=== PATIENT | female | born 1980 | race Caucasian/White ===

== ENCOUNTER 2017-06-08 08:42 | Day surgery (SDC) | payer OTHER ==
[2017-06-01 13:53] LABS: INTERNATIONAL RATION (INR) 0.86; PARTIAL THROMBOPLASTIN TIME 24.4 SEC (23.5-35.8); PROTHROMBIN TIME 12.4 SEC (11.4-15.4)
[2017-06-01 14:11] LABS: ALANINE AMINOTRANSFERASE 39 U/L (9-52); ALBUMIN 4.7 g/dL (3.5-5.0); ALKALINE PHOSPHATASE 64 U/L (38-126); ANION GAP 12 (5-19); ASPARTATE AMINO TRANSFERASE 31 U/L (14-36); BILIRUBIN,DIRECT 0.3 mg/dL (0.0-0.4); BILIRUBIN,TOTAL 0.3 mg/dL (0.2-1.3); BLOOD UREA NITROGEN 12 mg/dL (7-20); CALCIUM 10.4 mg/dL (8.4-10.2); CARBON DIOXIDE 24 mmol/L (22-30); CHLORIDE 108 mmol/L (98-107); GLUCOSE 83 mg/dL (75-110); POTASSIUM 4.5 mmol/L (3.6-5.0); SODIUM 143.9 mmol/L (137-145); TOTAL PROTEIN 7.4 g/dL (6.3-8.2)
--- NOTE | 2017-06-01 21:46 | EKG REPORT ---
SEVERITY:- NORMAL ECG - SINUS RHYTHM : Confirmed by: Devante Cardenas 01-Jun-2017 21:45:46
[2017-06-02 10:08] LABS: HEMATOCRIT 38.9 % (36.0-47.0); HEMOGLOBIN 13.3 g/dL (12.0-15.5); MEAN CORPUSCULAR HEMOGLOBIN 33.5 pg (27.0-33.4); MEAN CORPUSCULAR HGB CONC 34.2 g/dL (32.0-36.0); MEAN CORPUSCULAR VOLUME 98 fl (80-97); PLATELET COUNT 261 10^3/uL (150-450); RED BLOOD COUNT 3.97 10^6/uL (3.72-5.28); RED CELL DISTRIBUTION WIDTH 12.9 % (11.5-14.0); WHITE BLOOD COUNT 5.6 10^3/uL (4.0-10.5)
[~2017-06-08 08:42] MED LIST: BUPIVACAINE HCL 0.25 % INJ/PF (2.5 MG/1 ML) 30 ML VIAL ONE; CEFAZOLIN 2 GM/D5W RTU 2 GM/50 ML RTUPB IV PRN; LACTATED RINGERS 1000 ML IV PRN; LIDOCAINE 0.5% INJ-PF (5 MG/ML) 50 ML SDV SUBCUT PRN; METHYLENE BLUE 50 MG/10 ML AMPULE ONE; RINGERS SOLUTION,LACTATED 1,000 ML IV PRN
[2017-06-08] MEDS ORDERED: PROPOFOL INJ 200 MG/20 ML VIAL IV ONE (11:17)
[2017-06-08] MEDS ORDERED: EPHEDRINE SULFATE INJ 50 MG/1 ML AMPULE ONE (11:17)
[2017-06-08] MEDS ORDERED: ACETAMINOPHEN 100 ML IV ONE (11:17)
[2017-06-08] MEDS ORDERED: HYDROMORPHONE HCL INJ/PF 2 MG/ML AMPULE ONE (11:17)
[2017-06-08] MEDS ORDERED: FENTANYL CITRATE INJ/PF 100 MCG/2 ML AMPUL ONE (11:17)
[2017-06-08] MEDS ORDERED: MIDAZOLAM 2 MG/2 ML INJ ONE (11:17)
[2017-06-08] MEDS ORDERED: NEOSTIGMINE METHYLSULFATE 10 MG/10 ML VIAL ONE (13:43)
[2017-06-08] MEDS ORDERED: DEXAMETHASONE SOD PHOSPHATE INJ 4 MG/1 ML VIAL ONE (13:43)
[2017-06-08] MEDS ORDERED: KETOROLAC TROMETHAMINE 60 MG/2 ML SDV ONE (13:43)
[2017-06-08] MEDS ORDERED: SUCCINYLCHOLINE CHLORIDE INJ 200 MG/10 ML VIAL ONE (13:43)
[2017-06-08] MEDS ORDERED: GLYCOPYRROLATE INJ 0.4 MG/2 ML VIAL ONE (13:43)
[2017-06-08] MEDS ORDERED: LIDOCAINE 2% INJ-PF (20 MG/ML) 2 ML AMPUL ONE (13:43)
[2017-06-08] MEDS ORDERED: VECURONIUM BROMIDE INJ 10 MG VIAL IV ONE (13:43)
[2017-06-08] MEDS ORDERED: OXYCODONE-ACETAMINOPHEN 5-325 MG TABLET PO PRN ×3 (13:50→14:21)
[2017-06-08] MEDS ORDERED: OXYCODONE HCL IR 5 MG TABLET PO PRN (13:51)
[2017-06-08] MEDS ORDERED: ONDANSETRON 4 MG TAB.RAPDIS PO PRN (13:52)
[2017-06-08] MEDS ORDERED: PROMETHAZINE HCL INJ 25 MG/1 ML VIAL IV PRN ×3 (13:52→14:21)
[2017-06-08] MEDS: FENTANYL CITRATE INJ/PF 100 MCG/2 ML AMPUL ONE ×2 (13:58→14:03)
[2017-06-08] MEDS ORDERED: NORMAL SALINE 1000 ML 1,000 ML IV ONE (14:00)
[2017-06-08] MEDS ORDERED: FENTANYL CITRATE INJ/PF 100 MCG/2 ML AMPUL IV PRN ×4 (14:16→14:21)
[2017-06-08] MEDS ORDERED: ONDANSETRON HCL INJ/PF 4 MG/2 ML SDV IV PRN (14:21)
[2017-06-08] MEDS ORDERED: MORPHINE SULFATE 10 MG/ML INJ IV PRN (14:21)
[2017-06-08] MEDS ORDERED: DIPHENHYDRAMINE HCL 50 MG/ML VIAL IV PRN (14:21)
[2017-06-08] MEDS ORDERED: MEPERIDINE HCL/PF INJ 25 MG/1 ML DISP.SYRIN IV PRN (14:21)
--- NOTE | 2017-06-08 14:29 | OPERATIVE REPORT E ---
Operative Report NAME: WILFRIDO BOSCH : 1980 AGE: 37Y DATE OF SURGERY: 06/08/2017 ROOM: PREOPERATIVE DIAGNOSES: 1. HISTORY OF BREAST CANCER, STATUS POST RADIATION AND CHEMOTHERAPY. 2. CHRONIC PELVIC PAIN. 3. RISK REDUCING BILATERAL SALPINGO-OOPHORECTOMY DUE TO A HISTORY OF BREAST CANCER. POSTOPERATIVE DIAGNOSES: 1. HISTORY OF BREAST CANCER, STATUS POST RADIATION AND CHEMOTHERAPY. 2. CHRONIC PELVIC PAIN. 3. RISK REDUCING BILATERAL SALPINGO-OOPHORECTOMY DUE TO A HISTORY OF BREAST CANCER. OPERATION: 1. Robotic-assisted laparoscopic hysterectomy. 2. Bilateral salpingo-oophorectomy. 3. Cystoscopy. SURGEON: Rosalinda Yanez ANESTHESIA: General. ESTIMATED BLOOD LOSS : 100 mL. INTRAVENOUS FLUIDS: 2 L of normal saline. URINE OUTPUT: 500 mL clear urine. COMPLICATIONS: None. INDICATIONS: Patient is a 36-year-old G0 with a history of breast cancer with ERPR positive receptors, status post radiation and chemotherapy in the past, being followed by General Surgery and Oncology, presented initially for chronic pelvic pain and desires to have permanent removal of her ovaries, tubes, and uterus due to her extensive history of current breast cancer. Patient understood and consented for procedure, and agreed to proceed to the operating room after getting appropriate consent. Patient was counseled on procedure including, but not limited to, bleeding, infection, injury to surrounding organ and tissue including bowel or bladder, and the need of exploratory laparotomy in case there is bleeding at the same time that cannot be controlled with the laparoscope, and the need of transfusion of red blood cells. FINDINGS: Normal ovaries bilaterally, normal fallopian tubes, and normal uterus size. PROCEDURE: Patient was taken into the operating room. General anesthesia was induced without difficulty. Patient was placed in the dorsal lithotomy position and was thoroughly prepped and draped in the usual sterile fashion. A Alexandre Hugger was placed to maintain control of core body temperature. Dickinson catheter was placed in the bladder. A single-tooth tenaculum was placed in the cervix and grasped the cervix, and the cervix was dilated with a cervical os dilator. Uterus was sounded to approximately 7 cm. Two tjrtng-lt-dnnah stitches around 3 and 9 o'clock were placed for anchoring stitches before placing the VCare and the VCare manipulator was attached to the uterus in a cervical ring and anchored to the stitches on the right and left. The weighted speculum and single-tooth tenaculum were removed. A horizontal supraumbilical incision was performed and the Veress needle was introduced into the abdominal cavity. After appropriate drop test, the abdomen was insufflated with carbon dioxide until pneumoperitoneum was established. The Veress needle was removed. Supraumbilical incision was slightly extended. A 12 mm trocar was inserted and placed in the abdominal cavity under direct visualization with the laparoscope without any difficulty. Trocar removed. The robot laparoscope was placed in the abdominal cavity. Please see the above findings. Three additional ports, one in the right lower, one in the left lower, and one in the right upper quadrant were inserted under direct visualization. Special attention was paid to the ureters bilaterally and the ureters were both well away from the surgical field at all times. At this point after visualizing the ureters and making sure that they were away from the surgical forrester, the right infundibulopelvic ligament was cauterized and transected. The right round ligament was cauterized and transected all the way down to the level of uterine's, and the right bladder flap was created. On the contralateral side, it was performed in a similar fashion. The infundibulopelvic ligament was cauterized and transected, and the left round ligament cauterized and transected all the way down to the level of the uterine's. The left side of the bladder flap was created and met the right side of the bladder flap. At this point, the bladder was pushed all the way down after appropriate dissection making sure it was far away from the colpotomy site. The left and the right uterine blood vessels were cauterized also appropriately and transected. At this point, the anterior colpotomy was performed circumscribing the cervix. After performing the anterior and posterior colpotomy and connecting them in a circumscribed fashion, the uterus was removed with the cervix, with both the fallopian tubes, and the right and left ovary. At this time, irrigation was performed. The vaginal cuff was completely intact and no oozing was visualized from the pelvic sidewalls or the vaginal cuff. The bladder was far away from the vaginal cuff. Visualization of both the ureters was also performed, they were both peristalsing and acting normally. FloSeal was applied to the vaginal cuff after closing the vaginal cuff appropriately with a V-Loc suture in a running fashion. During the closure of the vaginal cuff, I asked Anesthesia to give methylene blue for the cystoscopy portion preparation. Once the vaginal cuff closure was performed and FloSeal applied along the vaginal cuff and making sure the pelvic sidewalls and everything else looked hemostatic, attention was turned to below for the cystoscopy portion. The cystoscope revealed completely normal ureters with blue hue coming through both the right and left ureters with excellent flow of efflux bilaterally. Bladder integrity was visualized. There were no foreign bodies, injuries, or sutures identified in the bladder. The double bubble sign was also identified, and the integrity of the bladder was completely normal. At this point, the cystoscope was removed. A sponge stick was inserted vaginally to remove any residual blood clots and blood from the vagina mucosa. Attention was turned back to the abdomen, and one further visualization revealed completely hemostatic pelvic sidewalls and vaginal cuff. At this point, the laparoscope was removed, trocars were removed. The abdomen was desufflated and the incisions were repaired with 4-0 Monocryl in a subcuticular fashion. The supraumbilical incision was reapproximated. The fascia was grasped after the S retractors were used with the Nila's and repaired with a UR6 in a ogqvos-rc-pjsoe stitch to reapproximate the fascia. A 0.25% bupivacaine was injected around the sites for postoperative pain control. All the incisions were repaired with a 4-0 Monocryl in a subcuticular fashion. Dermabond was applied on top of each incision. All sponge, lap, and needle counts were correct x2. Patient did receive prophylactic IV antibiotics. Patient tolerated the procedure well and was taken to the recovery room in stable condition. DICTATING PHYSICIAN: Rosalinda Yanez MD [id number] PHY#: [id number] ID: [id number] JOB#: [id number] ACCT: [id number] cc:Rosalinda Yanez >
[2017-06-08 17:54] VITALS: BP 104/73
[2017-06-08] MEDS ORDERED: TRIAZOLAM PO SCH (22:00)
[2017-06-09] MEDS ORDERED: LAMOTRIGINE 100 MG TABLET PO SCH (10:00)
[2017-06-09] MEDS ORDERED: (PENDING PHARMACY ID) (Lamotrigine [Lamictal] 200 MG) PO SCH (10:00)
[2017-06-09] MEDS ORDERED: TAMOXIFEN CITRATE 10 MG TABLET PO SCH (10:00)
[2017-06-09] MEDS ORDERED: LITHIUM CARBONATE PO SCH (10:00)
[2017-06-09] MEDS ORDERED: TAMOXIFEN CITRATE PO SCH (10:00)
[2017-06-09] MEDS ORDERED: LITHIUM CARBONATE 300 MG CAPSULE PO SCH (10:00)
== END 2017-06-08 18:15 | disposition home or self-care (01) ==
LOC: OROUT 08:42 → 2N 14:46 → OROUT 18:15
PROVIDERS: ATTEND Obstetrics & Gynecology
PROC: 0UT24ZZ Resection of Bilateral Ovaries, Percutaneous Endoscopic Approach (ICD-10-PCS; 2017-06-08)
PROC: 0UT74ZZ Resection of Bilateral Fallopian Tubes, Percutaneous Endoscopic Approach (ICD-10-PCS; 2017-06-08)
PROC: 8E0W4CZ Robotic Assisted Procedure of Trunk Region, Percutaneous Endoscopic Approach (ICD-10-PCS; 2017-06-08)
PROC: 0UT94ZZ Resection of Uterus, Percutaneous Endoscopic Approach (ICD-10-PCS; principal; 2017-06-08 11:00)
DX: G89.29 Other chronic pain (principal); R10.2 Pelvic and perineal pain; N80.0 Endometriosis of uterus; Z85.3 Personal history of malignant neoplasm of breast; I97.2 Postmastectomy lymphedema syndrome; F33.3 Major depressive disorder, recurrent, severe with psychotic symptoms; G50.0 Trigeminal neuralgia; Z79.899 Other long term (current) drug therapy; Z79.810 Long term (current) use of selective estrogen receptor modulators (SERMs)
CPT/HCPCS: 58571; S2900; 36415; 80053; 81025; 840; 85027; 85610; 85730; 86850; 86900; 86901; 88307; 93005; 93010; J0131; J0330; J0690; J1100; J1170; J1885; J2250; J2704; J3010; J3490; Q9968

== ENCOUNTER → 2018-12-20 | Outpatient (CLI) | payer OTHER ==
--- NOTE | 2018-12-20 11:24 | WOMENS IMAGING REPORT ---
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 TECHNIQUE: Real-time and static grayscale imaging performed of the left breast/axilla targeted to th e area of clinical/mammographic concern. Selected color Doppler images recorded. LIMITATIONS: None. FINDINGS: MASS: No mass identified. Linear echogenic focus likely due to a surgical clip. Normal g landular tissue. OTHER: No other significant finding. IMPRESSION: No suspicious findings detected by ultrasound. BIRAD: 1 Negative. RECOMMENDATION: RECOMMENDED FOLLOW-UP: Follow-up as clinically indicated. COMMENT: The [employer] ([employer]) has developed recommendations for screening MRI of the breasts in certain patient populations, to be used in conjunction with mammography. Breast MRI s urveillance may be appropriate for women with more than 20% lifetime risk of developing breast cancer as determined by genetic testing, significant family history of the disease, or history of mantle r adiation for Hodgkins Disease. [employer]CR Practice Guidelines 2008. TECHNICAL DOCUMENTATION: JOB ID: [id number] [employer]- All Rights Reserved Reading location - IP/workstation name: [email or web address]
== END ==
LOC: WI 10:35
PROVIDERS: ATTEND Internal Medicine Hematology & Oncology
DX: C50.412 Malignant neoplasm of upper-outer quadrant of left female breast (principal); N63.32 Unspecified lump in axillary tail of the left breast
CPT/HCPCS: 76642